=== PATIENT | female | born 1990 | race Caucasian/White ===

== ENCOUNTER → 2019-10-09 | Outpatient (CLI) | payer BC | END | disposition home or self-care (01) | LOC: LAB 13:46 | PROVIDERS: ATTEND Surgery | DX: Z11.59 Encounter for screening for other viral diseases (principal) | CPT/HCPCS: U0003-CS ==

== ENCOUNTER 2019-10-15 07:24 | Day surgery (SDC) | payer BC, OTHER ==
[~2019-10-15] VITALS: Ht 157.5 cm; Wt 100.5 kg
[~2019-10-15 07:24] MED LIST: ACETAMINOPHEN 500 MG TABLET PO PRN; BUPIVACAINE-EPI 0.25%-1:200000 MPF 30 ML VIAL. ONE; HYDROmorphone 2 MG/ML VIAL IV PRN; IOHEXOL 300 MG/ML 50 ML VIAL. ONE; IV RINGERS,LACTATED 1000ML 1,000 ML IV SCH; ONDANSETRON PF 4 MG/2 ML VIAL. IV PRN; POLY119P4 PO; PROCHLORPERAZINE 10 MG/2 ML VIAL. IV PRN; SURGICEL HEMOSTAT 4X8 EACH. ONE; fentaNYL PF VIAL 100 MCG/2 ML VIAL IV PRN
[2019-10-15] MEDS ORDERED: ceFAZolin 2GM PREMIX 2 GM/50 ML BAG IV ONE (08:00)
[2019-10-15] MEDS ORDERED: fentaNYL PF VIAL 100 MCG/2 ML VIAL ONE (08:06)
[2019-10-15] MEDS ORDERED: MIDAZOLAM HCL/PF 2 MG/2 ML VIAL. ONE (08:07)
[2019-10-15] MEDS ORDERED: LIDOCAINE 2% PF 5 ML VIAL. ONE (08:07)
[2019-10-15] MEDS ORDERED: ROCURONIUM 50 MG/5 ML VIAL. ONE (08:07)
[2019-10-15] MEDS ORDERED: PROPOFOL 10 MG/ML (20ML) VIAL. IV ONE (08:07)
[2019-10-15] MEDS ORDERED: ONDANSETRON PF 4 MG/2 ML VIAL. ONE (09:03)
[2019-10-15] MEDS ORDERED: GLYCOPYRROLATE 1 MG/5 ML VIAL. ONE (09:03)
[2019-10-15] MEDS ORDERED: DEXAMETHASONE SOD PHOS 4 MG/ML VIAL ONE (09:03)
[2019-10-15] MEDS ORDERED: NEOSTIGMINE METHYLSULFATE 5 MG/5 ML SYRINGE. ONE (09:04)
[2019-10-15] MEDS ORDERED: KETOROLAC 30 MG/ML VIAL. ONE (09:17)
--- NOTE | 2019-10-15 09:27 | PDOC4 ---
Operative Note Operative Note Date: October 15, 2019 at 924 Preoperative diagnosis: Biliary dyskinesia Postoperative diagnosis: Same Surgeon: Hardy Procedure: Laparoscopic cholecystectomy Specimen: Gallbladder Dictation: Patient is 29-year-old female has right upper quadrant abdominal pain especially after eating. A HIDA scan showed an ejection fraction of only 3%. Procedure of laparoscopic cholecystectomy was explained to the patient in detail risk-benefit were also discussed including bleeding infection injury to intra- abdominal contents possibly necessitating further or open operations alternatives to this procedure also discussed with the patient who seemed to understand and gave both verbal and written consent to have the procedure performed. Patient was taken to the operating room placed the supine position general anesthesia was initiated once patient was sleeping intubated her abdomen was prepped and draped usual sterile fashion using ChloraPrep. Area just below the umbilicus was injected with quarter percent Marcaine with epinephrine incision was made 11 blade scalpel and a varies needle was placed within the abdomen creating pneumoperitoneum once this was complete a 11 mm port was placed and a 5 mm camera was placed within the abdomen which was inspected no other red maladies were noted. A 5 mm port was placed in the epigastrium a 5 mm port was placed in the right midabdomen and a 5 mm port was placed in the right lateral abdomen. The dome of the gallbladder is grasped tract cephalad the infundibulum of the gallbladder is grasped tract and laterally exposing the triangle adherent tissues the triangle were taken down with blunt dissection exposing the cystic duct and cystic artery both were doubly clipped and transected the gallbladder was taken off the liver with hook electrocautery placed in Endo Catch bag moving the umbilicus right upper quadrant was irrigated and suctioned dry hemostasis was controlled and the pneumoperitoneum was reduced all ports were removed the fascial defect at the umbilicus closed [id number] 0 Vicryl suture and the skin was reapproximated all port sites for subcuticular Monocryl Mastisol Steri- Strips and island dressings were applied. Patient was awakened and extubated in the operating room taken to recovery in stable condition all sponge instrument needle counts listed as correct estimated blood loss 20 mL. HOLLEY STEPHENSON MD Oct 15, 2019 09:27
--- NOTE | 2019-10-15 09:29 | DISCH ---
DISCHARGE INSTRUCTIONS Condition on Discharge Condition on Discharge: Stable Activity After Discharge Activity Instructions for Disc: Avoid exertion Other activity instructions: No lifting more than 20 pounds for 2 weeks Diet after Discharge Diet after Discharge: Low Fat Wound Incision Care Other wound/incision instructi: May shower in 24 hours Contacting the after DC Call your doctor for: If your condition worsens Follow-Up Follow up with: Dr. Stephenson in 2 weeks HOLLEY STEPHENSON MD Oct 15, 2019 09:29
[2019-10-15] MEDS ORDERED: MORPHINE SULFATE 2 MG/ML VIAL. ONE (09:39)
[2019-10-15] MEDS: MORPHINE SULFATE 2 MG/ML VIAL. IV PRN ×2 (09:48→10:03)
[2019-10-15] MEDS ORDERED: OXYC-325 PO (09:51)
[2019-10-15] MEDS ORDERED: oxyCODONE/APAP 5/325 1 TAB TABLET PO ONE ×2 (10:00)
[2019-10-15 11:04] VITALS: BP 133/71
--- NOTE | 2019-10-16 18:06 | PATHOLOGY ---
[facility] Accession Number: [id number] . 01 Material submitted: . gallbladder - GALLBLADDER AND CONTENTS . 01 Clinical history: . Biliary dyskinesia . 02 Diagnosis: Gallbladder, excision: - Chronic cholecystitis; negative for malignancy. - Cholesterolosis. - Lithiasis. . (MLK/db; 10/16/2019) LBQ 10/16/2019 1734 Local . 02 Electronically signed: . Per Hall MD, Pathologist NPI- [id number] . 01 Gross description: . The specimen is received in formalin, labeled "Crystal Hastings, gallbladder and contents". Received is an intact gallbladder measuring 9.3 x 2.5 x 2.3 cm in greatest dimensions displaying a pink-shepherd serosal surface. Opening the specimen reveals a velvety, bile-stained mucosa with moderate, diffuse cholesterolosis, and with a gallbladder wall thickness of 0.1 cm. A single yellow-green, crystalline calculus is present, and no masses or lesions are noted grossly. Fuel Handler sections, to include the proximal margin, are submitted in cassette A1. (CAA; 10/15/2019) QAC/QA 10/15/2019 1658 Local . 02 Pathologist provided ICD-10: K80.10, K82.4 . 02 CPT . 132500 Specimen Comment: A courtesy copy of this report has been sent to [phone], [phone] Specimen Comment: [id number] Specimen Comment: Report sent to / DR PRINCE Performed at: 01 [facility] [address], [place], [place] [id number] MD Darinel James MD Phone: [phone] Performed at: 02 [facility] [address] [place], [place] [id number] MD Chico Miller MD Phone: [phone]
== END 2019-10-15 11:23 | disposition home or self-care (01) ==
LOC: SURG 07:24
PROVIDERS: ATTEND Surgery
DX: K80.10 Calculus of gallbladder with chronic cholecystitis without obstruction (principal)
CPT/HCPCS: 47562; J1100; J1885; J2270; J2405; J2704; J2710; J3010; J3490; 81025; A7015; J0690; J2250; J7030; Q9967